=== PATIENT | male | born 1985 | race Caucasian/White ===

== ENCOUNTER 2017-08-12 11:56 | Emergency (ER) | payer MEDICAID ==
[~2017-08-12] VITALS: Ht 185.4 cm; Wt 85.0 kg
[~2017-08-12 11:56] MED LIST: CLIN150C14 PO; HYDR-3533 PO; ZOFR4TAB PO
[2017-08-12 12:20] VITALS: BP 139/87; PULSE 68; RESP 16; TEMP 98.8; O2SAT 99
[2017-08-12] MEDS ORDERED: SODIUM CHLOR 0.9% 1000 ML INJ 1,000 ML IV SCH (14:35)
--- NOTE | 2017-08-12 14:41 | PD ---
HPI Chief Complaint: Abdominal Pain Time Seen by Provider: 14:25 Travel History International Travel<30 days: No Contact w/Intl Traveler<30days: No Traveled to known affect area: No History of Present Illness HPI 32-year-old male with history of right inguinal hernia repair, kidney stones presents emergency department for evaluation of right lower quadrant pain and bloody stool that started Friday. Patient says that the bloody stool and pain started the same time. Patient says that the pain is located near the right inguinal hernia that he had repaired proximally 7 years ago. Says that he is also has some bright red bleeding on the toilet paper upon wiping. He denies nausea or vomiting. Says that he has been able to eat and drink normally. No exacerbating or palliative factors. No radiation of pain. No urinary complaints. History of appendectomy. PFSH Past Medical History Autoimmune Disease: No Cancer: No Cardiovascular Problems: No Diminished Hearing: No Endocrine: No Gastrointestinal Disorders: Yes GERD: Yes Genitourinary: Yes Immune Disorder: No Inguinal Hernia: Yes (RIGHT GROIN) Implanted Vascular Access Dvce: No Kidney Stones: Yes (8MM/ x2 2009) Musculoskeletal: No Neurologic: No Psychiatric: No Reproductive: No Respiratory: No Integumentary: Yes (HAD I&D OF RIGHT FACE ON 12/07/07 CYST REMOVAL ) Immunizations Current: No PNEUMOCCOCAL Vaccine (Year): 1 Past Surgical History Abdominal Surgery: Yes (APPENDECTOMY 2009) Appendectomy: Yes (2009) Genitourinary Surgery: Yes (R RENAL STENT;LITHOTRIPSY 10/26/2010) Oral Surgery: Yes (TEETH EXTRACTED) Other Surgery: Yes (RIGHT INGUINAL HERNIA REPAIR 01/2011) Social History Alcohol Use: Yes (DRINKS ON THE WEEKENDS) Tobacco Use: Yes (02/25 PPD) Substance Use: No Allergies-Medications (Allergen,Severity, Reaction): Coded Allergies: *MDRO Multi-Drug Resistant Organism (Verified Adverse Reaction, Unknown, 01/01/16) 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 HEAD: Atraumatic. Normocephalic. EYES: Pupils equal and round. No scleral icterus. No injection or drainage. ENT: No nasal bleeding or discharge. Mucous membranes pink and moist. NECK: Trachea midline. No JVD. CARDIOVASCULAR: Regular rate and rhythm. No murmur appreciated. RESPIRATORY: No accessory muscle use. Clear to auscultation. Breath sounds equal bilaterally. GASTROINTESTINAL: Abdomen soft, nondistended. Diffusely tender, focused in the right lower quadrant/right pelvic region. Scar present along inguinal area, consistent with patient's history of hernia repair. bilateral inguinal masses- inguinal hernia. Rectal exam performed with nurse present- no anal tags or hemorrhoids noted. brown stool. Good tone. MUSCULOSKELETAL: No obvious deformities. No clubbing. No cyanosis. No edema. NEUROLOGICAL: Awake and alert. No obvious cranial nerve deficits. Motor grossly within normal limits. Normal speech. PSYCHIATRIC: Appropriate mood and affect; insight and judgment normal. Data Data Last Documented VS Vital Signs Date Time Temp Pulse Resp B/P (MAP) Pulse Ox O2 Delivery O2 Flow Rate FiO2 08/12/17 15:24 18 08/12/17 15:06 98 Room Air 08/12/17 15:06 60 127/86 (100) 08/12/17 12:20 98.8 Orders Orders Complete Blood Count With Diff (08/12/17 14:35) Comprehensive Metabolic Panel (08/12/17 14:35) Lipase (08/12/17 14:35) Prothrombin Time / Inr (Pt) (08/12/17 14:35) Act Partial Throm Time (Ptt) (08/12/17 14:35) Urinalysis - C+S If Indicated (08/12/17 14:35) Ct Abd/Pel W Iv Contrast(Rout) (08/12/17 14:35) Iv Access Insert/Monitor (08/12/17 14:35) Ecg Monitoring (08/12/17 14:35) Oximetry (08/12/17 14:35) Morphine Inj (Morphine Inj) (08/12/17 14:45) Sodium Chlor 0.9% 1000 Ml Inj (Ns 1000 M (08/12/17 14:35) Iohexol 350 Inj (Omnipaque 350 Inj) (08/12/17 16:38) Ed Discharge Order (08/12/17 18:03) Labs Laboratory Tests Test 08/12/17 14:40 08/12/17 15:50 White Blood Count 9.1 TH/MM3 Red Blood Count 5.25 MIL/MM3 Hemoglobin 15.4 GM/DL Hematocrit 45.7 % Mean Corpuscular Volume 87.1 FL Mean Corpuscular Hemoglobin 29.3 PG Mean Corpuscular Hemoglobin Concent 33.6 % Red Cell Distribution Width 13.3 % Platelet Count 258 TH/MM3 Mean Platelet Volume 9.4 FL Neutrophils (%) (Auto) 63.0 % Lymphocytes (%) (Auto) 27.7 % Monocytes (%) (Auto) 6.0 % Eosinophils (%) (Auto) 2.3 % Basophils (%) (Auto) 1.0 % Neutrophils # (Auto) 5.7 TH/MM3 Lymphocytes # (Auto) 2.5 TH/MM3 Monocytes # (Auto) 0.5 TH/MM3 Eosinophils # (Auto) 0.2 TH/MM3 Basophils # (Auto) 0.1 TH/MM3 CBC Comment DIFF FINAL Differential Comment Prothrombin Time 10.6 SEC Prothromb Time International Ratio 1.0 RATIO Activated Partial Thromboplast Time 28.1 SEC Blood Urea Nitrogen 7 MG/DL Creatinine 1.02 MG/DL Random Glucose 86 MG/DL Total Protein 7.6 GM/DL Albumin 3.9 GM/DL Calcium Level 8.9 MG/DL Alkaline Phosphatase 114 U/L Aspartate Amino Transf (AST/SGOT) 12 U/L Alanine Aminotransferase (ALT/SGPT) 30 U/L Total Bilirubin 0.3 MG/DL Sodium Level 141 MEQ/L Potassium Level 4.0 MEQ/L Chloride Level 108 MEQ/L Carbon Dioxide Level 24.2 MEQ/L Anion Gap 9 MEQ/L Estimat Glomerular Filtration Rate 85 ML/MIN Lipase 130 U/L Urine Color Straw Urine Turbidity CLEAR Urine pH 7.0 Urine Specific [place] 1.009 Urine Protein NEG mg/dL Urine Glucose (UA) NEG mg/dL Urine Ketones NEG mg/dL Urine Occult Blood NEG Urine Nitrite NEG Urine Bilirubin NEG Urine Urobilinogen LESS THAN 2 mg/dL Urine Leukocyte Esterase NEG Urine RBC 1 /hpf Urine WBC LESS THAN 1 /hpf Microscopic Urinalysis Comment CULT NOT INDICATED MDM Medical Decision Making Medical Screen Exam Complete: Yes Emergency Medical Condition: Yes Differential Diagnosis Incarcerated hernia, inguinal hernia, hematochezia, hemorrhoids Narrative Course 32y male presents to the ED with complaints of RLQ pain that started Friday, associated with BRBPR. Has no other complaints to include dizziness, chest pain , SOB. Has a history of abdominal pain but this has been the most painful. Morphine for pain. 1L NS administered. Rectal exam with scant stool, brown in color. Hemoccult positive. CBC & BMP Diagram 08/12/17 14:40 Total Protein 7.6, Albumin 3.9, Calcium Level 8.9, Alkaline Phosphatase 114, Aspartate Amino Transf (AST/SGOT) 12 L, Alanine Aminotransferase (ALT/SGPT) 30, Total Bilirubin 0.3 Last Impressions Abdomen/Pelvis CT 08/12/17 1435 Signed Impressions: CONCLUSION: 1. No acute abnormality is identified to explain the right abdominal pain. 2. There are chronic bilateral pars interarticularis defects at L4 with associ ated grade 1 anterolisthesis. Pt discharged with tramadol and Proctosol. Strongly advised to follow up with a colon and rectal physician. Consider GI vs general surgeon for further evaluation of abd pain. No emergent process today to explain his pain. Probable hemorrhoids vs fissures causing his BRBPR. HemaPrompt Point of Care Internal Pos. & Neg. Controls: Passed Fecal Specimen Occult Blood: Positive (very little stool, faintly positive) Diagnosis Primary Impression: Abdominal pain Qualified Codes: R10.84 - Generalized abdominal pain Additional Impression: Blood in stool Referrals: [facility] Colon Rectal Specialist Patient Instructions: General Instructions, Hemoccult Test (GEN) Additional Instructions: Follow up with your Primary care physician regarding your bleeding. Consider follow up with a colorectal and gastrointestinal specialist regarding your bleeding and abdominal pain. You likely have hemorrhoids, causing your bleeding. Your labs and CT ruled out an emergent process today. Scripts Hydrocortisone Rectal 2.5% (Proctosol Hc 2.5%) 2.5% Cream 1 APPLIC RECTAL BID Y for PAIN/INFLAMMATION for 3 Days, #1 TUBE 0 Refills Prov: Efraín Leach MD 08/12/17 Tramadol (Tramadol) 50 Mg Tab 50 MG PO Q8H Y for PAIN for 3 Days, #9 TAB 0 Refills Prov: Efraín Leach MD 08/12/17 Disposition: 01 DISCHARGE HOME Condition: Stable Rowan Durham Aug 12, 2017 14:41
[2017-08-12] MEDS ORDERED: MORPHINE SULFATE 4 MG/ML INJ IV PUSH ONE (14:45)
[2017-08-12 15:05] LABS: AUTOMATED NEUTROPHIL # 5.7 TH/MM3 (1.8-7.7); BASOPHIL # 0.1 TH/MM3 (0-0.2); EOSINOPHIL # 0.2 TH/MM3 (0-0.4); EOSINOPHIL % 2.3 % (0.0-4.0); HEMATOCRIT 45.7 % (39.0-51.0); HEMOGLOBIN 15.4 GM/DL (13.0-17.0); LYMPH % 27.7 % (9.0-44.0); LYMPHOCYTE # 2.5 TH/MM3 (1.0-4.8); MEAN CELL VOLUME 87.1 FL (80.0-100.0); MEAN CORPUSCULAR HEMOGLOBIN 29.3 PG (27.0-34.0); MEAN CORPUSCULAR HGB CONC 33.6 % (32.0-36.0); MEAN PLATELET VOLUME 9.4 FL (7.0-11.0); MONOCYTE # 0.5 TH/MM3 (0-0.9); PLATELET COUNT 258 TH/MM3 (150-450); RED BLOOD COUNT 5.25 MIL/MM3 (4.50-5.90); RED CELL DISTRIBUTION WIDTH 13.3 % (11.6-17.2); WHITE BLOOD COUNT 9.1 TH/MM3 (4.0-11.0)
[2017-08-12 15:06] VITALS: BP 127/86; PULSE 60; RESP 18; O2SAT 98; O2SAT 99
[2017-08-12 15:17] LABS: ALKALINE PHOSPHATASE 114 U/L (45-117); TOTAL BILIRUBIN ADULT 0.3 MG/DL (0.2-1.0); TOTAL PROTEIN 7.6 GM/DL (6.4-8.2)
[2017-08-12 15:24] VITALS: RESP 18
[2017-08-12 15:28] LABS: ALBUMIN 3.9 GM/DL (3.4-5.0); ALT (GPT) 30 U/L (12-78); AST (GOT) 12 U/L (15-37); BICARBONATE 24.2 MEQ/L (21.0-32.0); BLOOD UREA NITROGEN 7 MG/DL (7-18); CALCIUM 8.9 MG/DL (8.5-10.1); CHLORIDE 108 MEQ/L (98-107); CREATININE 1.02 MG/DL (0.60-1.30); GLOMERULAR FILTRATION RATE 85 ML/MIN (>89); GLUCOSE,RANDOM 86 MG/DL (74-106); PROTHROMBIN TIME - PATIENT 10.6 SEC (9.8-11.6); SODIUM (NA) 141 MEQ/L (136-145)
[2017-08-12 16:04] LABS: BILIRUBIN, URINE NEG (NEG); BLOOD, URINE NEG (NEG); GLUCOSE,URINE NEG (NEG); KETONE, URINE NEG (NEG); NITRITE,URINE NEG (NEG); URINE COLOR Straw (YELLW/STRAW); URINE LEUKOCYTE ESTERASE NEG (NEG)
--- NOTE | 2017-08-12 16:32 | RADRPT ---
EXAM DATE: 08/12/2017 4:18 PM EDT AGE/SEX: 32 years / Male INDICATIONS: Right lower abdominal pain, pelvis pain. CLINICAL DATA: This is the patient's initial encounter. Patient reports that signs and symptoms have been present for 1 day and indicates a pain score of 5/10. MEDICAL/SURGICAL HISTORY: Renal calculi. Inguinal hernia repair. Appendectomy. ORAL CONTRAST: Prescribed oral contrast ingested. RADIATION DOSE: 6.71 CTDI (mGy) COMPARISON: [facility], CT ABDOMEN & PELVIS W CONTRAST, 12/26/2015. [facility], CT ABDOMEN & PELVIS W CONTRAST , 08/05/2011. . TECHNIQUE: Multiple contiguous axial images were obtained through the abdomen and pelvis following b olus infusion of 80 ml Omnipaque 350 (iohexol) nonionic water-soluble contrast as a single exam dos e. Prescribed oral contrast ingested. Using automated exposure control and adjustment of the mA and/ or kV according to patient size, radiation dose was kept as low as reasonably achievable to obtain op timal diagnostic quality images. DICOM format image data is available electronically for review and comparison. FINDINGS: Lower chest: No acute abnormality is identified. Hepatobiliary: No focal liver lesion is identified. Hepatic vasculature demonstrates no abnormality. No calcified gallstones are present. Kidneys: No hydronephrosis, stone, or mass. Adrenal Glands: Within normal limits. Spleen: Within normal limits. Pancreas: Within normal limits. Vascular: The aorta is nonaneurysmal. Bowel/Mesentery: The stomach and small bowel demonstrate no abnormality. No acute colon abnormality i s seen. There is no free intraperitoneal air or fluid. Clips are present at the base of the cecum rel ated to prior appendectomy. The terminal ileum has a normal appearance. Abdominal Wall: No hernia is visualized. Retroperitoneum: No lymphadenopathy. Bladder: No wall thickening or mass. Reproductive: Within normal limits. Inguinal: No lymphadenopathy or hernia. Musculoskeletal: No acute osseous abnormality is identified. There are bilateral pars interarticulari s defects at L4 with 6 mm of anterolisthesis of L4 on L5. CONCLUSION: 1. No acute abnormality is identified to explain the right abdominal pain. 2. There are chronic bilateral pars interarticularis defects at L4 with associated grade 1 anterolis thesis. Electronically signed by: Yan Joyce MD 08/12/2017 4:31 PM EDT
[2017-08-12] MEDS ORDERED: IOHEXOL 350 MG/ML 10 ML VIAL (for RAD DIAG) IVCONTRAST ONE (16:38)
[2017-08-12] MEDS ORDERED: TRAM50TA PO (17:59)
--- NOTE | 2017-08-12 18:00 | PD ---
Data Data Last Documented VS Vital Signs Date Time Temp Pulse Resp B/P (MAP) Pulse Ox O2 Delivery O2 Flow Rate FiO2 08/12/17 15:24 18 08/12/17 15:06 98 Room Air 08/12/17 15:06 60 127/86 (100) 08/12/17 12:20 98.8 Orders Orders Complete Blood Count With Diff (08/12/17 14:35) Comprehensive Metabolic Panel (08/12/17 14:35) Lipase (08/12/17 14:35) Prothrombin Time / Inr (Pt) (08/12/17 14:35) Act Partial Throm Time (Ptt) (08/12/17 14:35) Urinalysis - C+S If Indicated (08/12/17 14:35) Ct Abd/Pel W Iv Contrast(Rout) (08/12/17 14:35) Iv Access Insert/Monitor (08/12/17 14:35) Ecg Monitoring (08/12/17 14:35) Oximetry (08/12/17 14:35) Morphine Inj (Morphine Inj) (08/12/17 14:45) Sodium Chlor 0.9% 1000 Ml Inj (Ns 1000 M (08/12/17 14:35) Iohexol 350 Inj (Omnipaque 350 Inj) (08/12/17 16:38) Labs Laboratory Tests Test 08/12/17 14:40 08/12/17 15:50 White Blood Count 9.1 TH/MM3 Red Blood Count 5.25 MIL/MM3 Hemoglobin 15.4 GM/DL Hematocrit 45.7 % Mean Corpuscular Volume 87.1 FL Mean Corpuscular Hemoglobin 29.3 PG Mean Corpuscular Hemoglobin Concent 33.6 % Red Cell Distribution Width 13.3 % Platelet Count 258 TH/MM3 Mean Platelet Volume 9.4 FL Neutrophils (%) (Auto) 63.0 % Lymphocytes (%) (Auto) 27.7 % Monocytes (%) (Auto) 6.0 % Eosinophils (%) (Auto) 2.3 % Basophils (%) (Auto) 1.0 % Neutrophils # (Auto) 5.7 TH/MM3 Lymphocytes # (Auto) 2.5 TH/MM3 Monocytes # (Auto) 0.5 TH/MM3 Eosinophils # (Auto) 0.2 TH/MM3 Basophils # (Auto) 0.1 TH/MM3 CBC Comment DIFF FINAL Differential Comment Prothrombin Time 10.6 SEC Prothromb Time International Ratio 1.0 RATIO Activated Partial Thromboplast Time 28.1 SEC Blood Urea Nitrogen 7 MG/DL Creatinine 1.02 MG/DL Random Glucose 86 MG/DL Total Protein 7.6 GM/DL Albumin 3.9 GM/DL Calcium Level 8.9 MG/DL Alkaline Phosphatase 114 U/L Aspartate Amino Transf (AST/SGOT) 12 U/L Alanine Aminotransferase (ALT/SGPT) 30 U/L Total Bilirubin 0.3 MG/DL Sodium Level 141 MEQ/L Potassium Level 4.0 MEQ/L Chloride Level 108 MEQ/L Carbon Dioxide Level 24.2 MEQ/L Anion Gap 9 MEQ/L Estimat Glomerular Filtration Rate 85 ML/MIN Lipase 130 U/L Urine Color Straw Urine Turbidity CLEAR Urine pH 7.0 Urine Specific [place] 1.009 Urine Protein NEG mg/dL Urine Glucose (UA) NEG mg/dL Urine Ketones NEG mg/dL Urine Occult Blood NEG Urine Nitrite NEG Urine Bilirubin NEG Urine Urobilinogen LESS THAN 2 mg/dL Urine Leukocyte Esterase NEG Urine RBC 1 /hpf Urine WBC LESS THAN 1 /hpf Microscopic Urinalysis Comment CULT NOT INDICATED MDM Supervised Visit with SHARAD: Yes Narrative Course I, Dr. Leach, have reviewed the advance practice practitioner's documentation and am in agreement, met with the patient face to face, made the diagnosis, and the medical decision making was done by me. *My assessment and Findings: Patient had right groin pain there is hernia repair site. Stents of workup was done to rule out emergency. Labs and urine and CT are negative for emergent problem. Stable for outpatient follow-up Referrals: [facility] Disposition: 01 DISCHARGE HOME Condition: Stable Efraín Leach MD Aug 12, 2017 18:00
[2017-08-12] MEDS ORDERED: PROC2.5C RECTAL (18:02)
[2017-08-12 18:50] VITALS: BP 124/70
== END 2017-08-12 18:51 | disposition home or self-care (01) ==
LOC: NEPC 11:56
DX: R10.84 Generalized abdominal pain (principal); K92.1 Melena; K21.9 Gastro-esophageal reflux disease without esophagitis; F17.200 Nicotine dependence, unspecified, uncomplicated; Z87.442 Personal history of urinary calculi; Z79.899 Other long term (current) drug therapy
CPT/HCPCS: 74177; 80053; 81001; 83690; 85025; 85610; 85730; 96361; 96374; 99284; J2270; J7030; Q9967